=== PATIENT | female | born 1975 | race Caucasian/White ===

== ENCOUNTER 2016-05-15 13:34 | Outpatient (CLI) | payer OTHER ==
[~2016-05-15] VITALS: Ht 160 cm; Wt 82.9 kg
[2016-05-15 13:54] VITALS: Ht 160 cm; Wt 82.9 kg
[2016-05-15 13:55] VITALS: BP 131/74; PULSE 80; RESP 18
[2016-05-15] MEDS ORDERED: PREN1TAB13 PO (13:59)
[2016-05-15] MEDS ORDERED: LACTATED RINGER'S 1,000 ML IV SCH (14:30)
[2016-05-15 15:19] LABS: ADD SCAN DIFF NO
[2016-05-15 15:31] LABS: ALBUMIN 3.4 g/dl (3.3-4.9); INR 0.98
[2016-05-15 15:32] LABS: PARTIAL THROMBOPLASTIN TIME 29.2 Sec (25.0-35.0); POTASSIUM 3.6 mmol/L (3.5-5.1)
[2016-05-15 15:34] LABS: ALBUMIN/GLOBULIN RATIO 1.03; BILIRUBIN,INDIRECT 0.1 mg/dl (0-1.1); BILIRUBIN,TOTAL 0.1 mg/dl (0.2-1.3); CREATININE 0.5 mg/dl (0.44-1.00); TOTAL PROTEIN 6.7 g/dl (6.1-8.1); URIC ACID 4.2 mg/dl (3.1-7.9)
[2016-05-15 15:35] LABS: CALCIUM 9.3 mg/dl (8.4-10.2)
[2016-05-15 15:51] LABS: BASOPHILS % 0.5 % (0.0-2.0); EOSINOPHILS % 0.4 % (0.0-7.0); HEMATOCRIT 38.7 % (37.0-47.0); HEMOGLOBIN 13.1 g/dl (12.0-16.0); LYMPHOCYTES # 1.6 10^3/ul (0.8-2.9); LYMPHOCYTES % 18.6 % (15.0-51.0); MEAN CORPUSCULAR HGB CONC 33.9 g/dl (32.0-37.0); MEAN CORPUSCULAR VOLUME 85.6 fl (82.0-101.0); MEAN PLATELET VOLUME 10.9 fl (7.4-10.4); MONOCYTE # 0.5 10^3/ul (0.3-0.9); MONOCYTES % 6.2 % (0.0-11.0); NEUTROPHIL # 6.3 10^3/ul (1.6-7.5); NEUTROPHILS % 73.9 % (39.0-77.0); PLATELET COUNT 205 10^3/UL (140-415); RED BLOOD COUNT 4.52 10^6/ul (4.20-5.40); RED CELL DISTRIBUTION WIDTH 13.3 % (11.5-14.5); WHITE BLOOD COUNT 8.5 10^3/ul (4.8-10.8)
[2016-05-15] MEDS ORDERED: ACETAMINOPHEN 325 MG TAB PO ONE (17:00)
[2016-05-15] MEDS ORDERED: INSU100C SQ (17:30)
--- NOTE | 2016-05-15 18:53 | RADRPT ---
PROCEDURE: US OB biophysical profile. CLINICAL INDICATION: evaluation TECHNIQUE: Multiple sonographic images of the pelvis were obtained. The images were reviewed on a PACS workstation. COMPARISON: No prior studies are available for comparison. FINDINGS: There is a single viable intrauterine gestation. Cardiac activity is present with 139 beats per min [place]. There is a vertex presentation. The placenta is anterior and to the left in location. There is no evidence of placental abruption. There is a normal amount of amniotic fluid with an TIANA = 9.4 cm. Biophysical profile: movement 2/2 tone 2/2. breathing 2/2 TIANA 2/2 Total 09/25 RPTAT: AA . IMPRESSION: Normal biophysical profile. Normal TIANA. Physician Trace Date Time Electronically viewed and signed by Physician Trace on 05/15/2016 18:52 /
--- NOTE | 2016-05-15 18:59 | CONS ---
Date/Time of Note Date/Time of Note DATE: 05/15/16 TIME: 18:53 Consultation Date/Type/Reason Admit Date/Time May 15, 2006 OB triage consult Reason for Consultation This patient is a 40 years old 3 para 1 1 with EDC of 06/11/2016 which makes her 36 weeks and 1 day Her main complaint was the finding in the clinic of low TIANA 7.6 cm and somewhat of a low movement she also has gestational diabetes mellitus on insulin her vital signs was fairly normal blood pressure of 131/74 and then again 120/ 69 pulse rate 80 respiration 18 temperature 98.8 heart tone was around 143 on ultrasound study her biophysical profile was reported 09/25 the TIANA of 9.3 which was very different from 7.6 which was in the office patient also had some complaint of headache this reason a pipe PIH lab was performed And she was given 650 mg of Tylenol her PIH lab report was basically normal blood sugar level was 110 With his normal findings patient was discharged home to be followed in her clinic Laboratory Tests Test 05/15/16 15:00 05/15/16 15:32 White Blood Count 8.510^3/ul Red Blood Count 4.5210^6/ul Hemoglobin 13.1g/dl Hematocrit 38.7% Mean Corpuscular Volume 85.6fl Mean Corpuscular Hemoglobin 29.0pg Mean Corpuscular Hemoglobin Concent 33.9g/dl Red Cell Distribution Width 13.3% Platelet Count 17272^3/UL Mean Platelet Volume 10.9fl Neutrophils % 73.9% Lymphocytes % 18.6% Monocytes % 6.2% Eosinophils % 0.4% Basophils % 0.5% Nucleated Red Blood Cells % 0.0/100WBC Neutrophils # 6.310^3/ul Lymphocytes # 1.610^3/ul Monocytes # 0.510^3/ul Eosinophils # 0.010^3/ul Basophils # 0.010^3/ul Nucleated Red Blood Cells # 0.010^3/ul Prothrombin Time 13.0Sec Prothrombin Time Ratio 1.0 INR International Normalized Ratio 0.98 Activated Partial Thromboplast Time 29.2Sec Sodium Level 132mmol/L Potassium Level 3.6mmol/L Chloride Level 101mmol/L Carbon Dioxide Level 24mmol/L Anion Gap 11 Blood Urea Nitrogen 12mg/dl Creatinine 0.50mg/dl Glucose Level 126mg/dl Uric Acid 4.2mg/dl Calcium Level 9.3mg/dl Total Bilirubin 0.1mg/dl Direct Bilirubin 0.00mg/dl Indirect Bilirubin 0.1mg/dl Aspartate Amino Transf (AST/SGOT) 23IU/L Alanine Aminotransferase (ALT/SGPT) 24IU/L Alkaline Phosphatase 127IU/L Total Protein 6.7g/dl Albumin 3.4g/dl Globulin 3.30g/dl Albumin/Globulin Ratio 1.03 Bedside Glucose 110mg/dL Current Medications Medications (Trade) Dose Ordered Sig/Ernesto Route PRN Reason Start Time Stop Time Status Last Admin Dose Admin Lactated Ringer's (Lr) 1,000 ml @ 125 mls/hr Q8H IV 05/15/16 14:30 05/15/16 17:13 125 MLS/HR Acetaminophen (Tylenol Tab) 650 mg ONCE ONCE PO 05/15/16 17:00 05/15/16 17:01 DC 05/15/16 16:58 650 MG Constitutional: No chills, No diaphoresis, No disoriented, No febrile, No improved, No no complaints, No other, No poor po, No requiring IVF, No requiring O2 Eyes: discharge, no complaints, other, pain, redness, visual change ENT: No bleeding, No congestion, No discharge, No dysphagia, No no complaints, No other, No pain, No sore throat Respiratory: cough, no complaints, other, pain, pleuritic pain, shortness of breath, sputum, wheezing Cardiovascular: No chest pain, No edema, No lightheadedness, No no complaints, No orthopenea, No other, No palpitations, No paroxysmal nocturnal dyspnea Gastrointestinal: No blood, No constipation, No decreased appetite, No diarrhea , No flatus, No nausea, No no complaints, No other, No pain, No passing stool, No vomiting Genitourinary: No bleeding, No discharge, No dysuria, No flank pain, No hematuria, No no complaints, No other Musculoskeletal: No back pain, No bone/joint pain, No neck pain, No no complaints, No other, No restricted range of motion, No swelling Skin: No bruising, No erythema, No laceration, No no complaints, No other, No pruritis, No rash, No skin lesions Neurologic: other (Knee-jerk reflex was normal), No confusion, No dizziness, No focal-weakness, No headache, No no complaints , No seizure, No syncope Endocrine: No dry skin, No no complaints, No other, No polydypsia, No polyuria , No temp intolerance Social History Smoking Status: Never smoker Exam/Review of Systems Vital Signs Vitals Vital Signs Date Time Temp Pulse Resp B/P Pulse Ox O2 Delivery O2 Flow Rate FiO2 05/15/16 13:55 98.8 80 18 131/74 Room Air Results Result Diagram: 05/15/16 1500 05/15/16 1500 Results 24 hrs Laboratory Tests Test 05/15/16 15:00 05/15/16 15:32 White Blood Count 8.5 Red Blood Count 4.52 Hemoglobin 13.1 Hematocrit 38.7 Mean Corpuscular Volume 85.6 Mean Corpuscular Hemoglobin 29.0 Mean Corpuscular Hemoglobin Concent 33.9 Red Cell Distribution Width 13.3 Platelet Count 205 Mean Platelet Volume 10.9 H Neutrophils % 73.9 Lymphocytes % 18.6 Monocytes % 6.2 Eosinophils % 0.4 Basophils % 0.5 Nucleated Red Blood Cells % 0.0 Neutrophils # 6.3 Lymphocytes # 1.6 Monocytes # 0.5 Eosinophils # 0.0 Basophils # 0.0 Nucleated Red Blood Cells # 0.0 Prothrombin Time 13.0 Prothrombin Time Ratio 1.0 INR International Normalized Ratio 0.98 Activated Partial Thromboplast Time 29.2 Sodium Level 132 L Potassium Level 3.6 Chloride Level 101 Carbon Dioxide Level 24 Anion Gap 11 Blood Urea Nitrogen 12 Creatinine 0.50 Glucose Level 126 Uric Acid 4.2 Calcium Level 9.3 Total Bilirubin 0.1 L Direct Bilirubin 0.00 Indirect Bilirubin 0.1 Aspartate Amino Transf (AST/SGOT) 23 Alanine Aminotransferase (ALT/SGPT) 24 Alkaline Phosphatase 127 H Total Protein 6.7 Albumin 3.4 Globulin 3.30 H Albumin/Globulin Ratio 1.03 Bedside Glucose 110 Medications Medications Current Medications Lactated Ringer's (Lr) 1,000 ml @ 125 mls/hr Q8H IV Last administered on t 17:13; Admin Dose 125 MLS/HR; Start 05/15/16 at 14:30 BELL LUO MD May 15, 2016 18:59
--- NOTE | 2016-05-15 19:01 | TRIAGE ---
OB Triage Datetime Report Generated by CPN: 05/15/2016 19:01 Datetime: 05/15/2016 18:37 Pattern: Normal: <= 5 Contractions in 10 Minutes Contraction Comments: no uc Heart Rate FHR Baseline Rate: 140 Monitor Mode: External US Variability: Moderate 6-25 bpm Accelerations: 15X15 Decelerations: None Category: Category I Pain Assessment Pain Scale: 4 Pain Presence: Intermittent Pain Type: Dull Pain Location: Head Pain Goal: 3 Datetime: 05/15/2016 17:59 Pattern: Normal: <= 5 Contractions in 10 Minutes Contraction Comments: NO UC Heart Rate FHR Baseline Rate: 135 Monitor Mode: External US Variability: Moderate 6-25 bpm Accelerations: 15X15 Decelerations: None Category: Category I Pain Assessment Pain Scale: 4 Pain Presence: Constant Pain Type: Dull Pain Location: Head Pain Goal: 3 Datetime: 05/15/2016 17:33 Comments: Report to Cher RN Datetime: 05/15/2016 16:59 Labor Evaluation Frequency: 0 Duration (sec)2399: 0 Resting Tone [place]: Relaxed Heart Rate FHR Baseline Rate: 135 Monitor Mode: External US FHR Baseline Changes: No Baseline Change Variability: Moderate 6-25 bpm Accelerations: 15X15 Decelerations: None Category: Category I Datetime: 05/15/2016 16:53 Comments: Pt c/o headache, Dr. Selwyn was informed new order for tylenol 650mg x1 Datetime: 05/15/2016 16:00 Labor Evaluation Frequency: X7 Monitor Mode: External Duration (sec)2399: 30-50 Quality: Mild Pattern: Normal: <= 5 Contractions in 10 Minutes Resting Tone [place]: Relaxed Heart Rate FHR Baseline Rate: 140 Monitor Mode: External US FHR Baseline Changes: No Baseline Change Accelerations: 15X15 Decelerations: None Category: Category I Datetime: 05/15/2016 15:31 Bedside Blood Glucose: 110 Datetime: 05/15/2016 15:01 Labor Evaluation Frequency: 0 Monitor Mode: External Duration (sec)2399: 3 Resting Tone [place]: Relaxed Heart Rate FHR Baseline Rate: 145 Monitor Mode: External US FHR Baseline Changes: No Baseline Change Variability: Moderate 6-25 bpm Accelerations: 15X15 Decelerations: None Category: Category I Datetime: 05/15/2016 14:30 Labor Evaluation Frequency: 0 Monitor Mode: External Duration (sec)2399: 0 Resting Tone [place]: Relaxed Heart Rate FHR Baseline Rate: 135 Monitor Mode: External US FHR Baseline Changes: No Baseline Change Variability: Moderate 6-25 bpm Accelerations: 15X15 Decelerations: None Category: Category I Pain Assessment Pain Scale: 0 Pain Presence: None/Denies Pain Type: N/A Pain Goal: 3 Datetime: 05/15/2016 14:18 Comments: Dr. Samano was informed of pt's arrival to unit from perinatologist clinic for minimum v ariability, high BP's and headache. New order for IV hydration, PIH labs, monitor pt for 4 hrs. Rep eat BPP in 4 hrs. Datetime: 05/15/2016 14:13 Comments: Dr. Samano called on cell phone with no answer Datetime: 05/15/2016 14:10 EGA: 36.0 Datetime: 05/15/2016 14:08 Labor Evaluation Frequency: 0 Monitor Mode: External Duration (sec)2399: 3 Resting Tone [place]: Relaxed Heart Rate FHR Baseline Rate: 135 Monitor Mode: External US FHR Baseline Changes: No Baseline Change Variability: Moderate 6-25 bpm Accelerations: 15X15 Decelerations: None Category: Category I Datetime: 05/15/2016 14:06 Stage of : OB Triage Assessment Type: Triage Maternal Assessment Level of Consciousness: Fully Conscious DTR's/Clonus: DTRs 2+; No Clonus Headache: Denies Blurred Vision: No Respiratory Effort: Unlabored; Regular Rhythm; Equal Expansion Breath Sounds, Left: Clear and Equal Breath Sounds, Right: Clear and Equal Nausea/Vomiting: Denies RUQ Epigastric Pain: Denies Lower Extremities Edema: None Upper Extremities Edema: None Facial Edema: None Temperature Route: Axillary Fall Risk Assessment History of Falling: (0) No Secondary Diagnosis: (0) No Ambulatory Aid: (0) Bedrest/Nurse Assist IV Therapy: (0) No Gait: (0) Normal/Bedrest/Immobile Mental Status: (0) Oriented to Own Ability Fall Score: 0 Fall Risk Score Definition: No Risk: No action required Pain Assessment Pain Scale: 2 Pain Presence: Intermittent Pain Type: Ache Pain Location: HEADACHE Pain Goal: 3 Datetime: 05/15/2016 13:59 Time of Arrival: 05/15/2016 13:30 Arrived By: Ambulatory Arrived From: Dr. Lantigua Chief Complaint: Sent from clinic for low TIANA and minimal variability Movement: Decreased Contractions: Denies/Absent (Annotations: Data stored by CPN on behalf of user) Rupture of Membranes: Denies Vaginal Bleeding: None Vaginal Discharge: Denies Recent Sexual Intercouse: Denies Abdominal Trauma: Not Applicable Patient Complaints: Cramping; Back Pain; Headache Time Provider Notified: 05/15/2016 14:18 Provider Notified: selwyn Initial Plan: TAMAR, MARIBETH panel, IV hydration
== END 2016-05-15 19:15 | disposition home or self-care (01) ==
LOC: OBT 13:34 → L-D 13:35 → OBT 19:15
PROVIDERS: ATTEND Obstetrics & Gynecology
DX: O24.419 Gestational diabetes mellitus in pregnancy, unspecified control (principal); O09.523 Supervision of elderly multigravida, third trimester; Z3A.39 39 weeks gestation of pregnancy
CPT/HCPCS: 36415; 76818; 80053; 82962; 84560; 85025; 85610; 85730; 96360; 96361; J7120; Z7500; Z7610; G0463